=== PATIENT | male | born 1980 | race Caucasian/White ===

== ENCOUNTER 2016-09-05 07:51 | Inpatient (IN) | payer BC ==
--- NOTE | ~2016-09-05 | PN ---
Unit #: [id number] #: [id number] Patient: ALBA CUNNINGHAM [id number] [facility] [address] [place] [address] [id number] I MR#: [id number] NAME: ALBA CUNNINGHAM. ROOM: P183 Age: 36 Sex: M Admission Date: 09/05/2016 : 1980 Attending Physician: Chicho Brink M.D. Admitting Physician: Chicho Brink M.D. Primary Care Physician: Primary Care Physician Penny KEATING NOTES DATE September 08, 2016 DISCUSSION Mr. Cunningham is a 36-year-old white male, who was seen today and chart was reviewed and the case was discussed with the staff. He has been anxious, withdrawn, but rather seclusive to himself, and has been hardly able to carry on any meaningful conversation. He has been cooperative with the treatment recommendations and he has been taking the medications and tolerating them fairly well with no reported side effects. MENTAL STATUS EXAMINATION Young white male, who was casually dressed with fair personal hygiene and appears to be in no acute distress or discomfort. He was awake and alert on interaction with intact orientation. His mood is anxious with a congruent affect. His speech is slow and goal-directed. He denies any suicidal or homicidal ideations, and also denies any auditory or visual hallucinations. His insight and judgment remain slightly impaired. TREATMENT PLAN 1. We will continue him on his current medications and treatment protocol, and will monitor his response to the medications, and make further adjustments as needed. 2. We will continue to followup. Dictated by... Ori Devi/alethea TD: 09/09/2016 06:54 JOB #: [id number] Unit #: [id number] #: [id number] Patient: ALBA CUNNINGHAM YESSY PROGRESS NOTES Page 1 of 1 X Chicho Brink MD PROGRESS NOTE
--- NOTE | ~2016-09-05 | PN ---
Unit #: [id number] #: [id number] Patient: ALBA CUNNINGHAM [id number] [facility] [address] [place] [address] [id number] I MR#: [id number] NAME: ALBA CUNNINGHAM. ROOM: P183 Age: 36 Sex: M Admission Date: 09/05/2016 : 1980 Attending Physician: Chicho Brink M.D. Admitting Physician: Chicho Brink M.D. Primary Care Physician: Primary Care Physician Penny KEATING NOTES DATE OF SERVICE 09/09/2016 DISCUSSION Mr. Cunningham is a 36-year-old white male who was seen today. Chart was reviewed and case was discussed with staff. He was seen to be anxious, withdrawn and seclusive to himself, lying in his bed, and was rather describing himself to be in distress or discomfort. Meanwhile, he has been taking the medications and tolerating them fairly well with no reported side effects. MENTAL STATUS EXAMINATION Young white male who is casually dressed with fair personal hygiene, appears to be in no acute distress or discomfort. The patient was awake and alert with intact orientation. His mood is anxious with congruent affect. Speech is slow and goal-directed. He denies any suicidal or homicidal ideations and also denies any auditory or visual hallucinations. His insight and judgment remain slightly impaired. TREATMENT PLAN 1. We will continue him on his current medications and treatment protocol. We will monitor his response to the medications and make further adjustments as needed. 2. We will continue to follow up. Dictated by... Ori Devi/emilie TD: 09/09/2016 14:08 JOB #: [id number] Unit #: [id number] #: [id number] Patient: ALBA CUNNINGHAM YESSY PROGRESS NOTES Page 1 of 1 X Chicho Brink MD PROGRESS NOTE
--- NOTE | ~2016-09-05 | PN ---
Unit #: [id number] #: [id number] Patient: ALBA CUNNINGHAM [id number] [facility] [address] [place] [address] [id number] I MR#: [id number] NAME: ALBA CUNNINGHAM ROOM: P183 Age: 36 Sex: M Admission Date: 09/05/2016 : 1980 Attending Physician: Chicho Brink M.D. Admitting Physician: Ori Devi PROGRESS NOTES DATE OF SERVICE: 09/10/2016 SUBJECTIVE Mr. Benedict is a 36-year-old white male, who was seen today and chart was reviewed and the case was discussed with the staff. He has been anxious and withdrawn, though has not shown any agitation or irritability and has been cooperative with the treatment recommendations as he has been taking the medications and tolerating them fairly well with no reported side effects. MENTAL STATUS EXAMINATION Young white male, who was casually dressed with fair personal hygiene, appears to be in no acute distress or discomfort. He was awake and alert on interaction with intact orientation. His mood was anxious with a congruent affect. He denies any suicidal or homicidal ideations. His insight and judgment remain slightly impaired. TREATMENT PLAN 1. We will continue him on his current treatment protocol. We will monitor his response and make further adjustments as needed. 2. We will continue to follow up. Dictated by... Ori Devi/mele TD: 09/10/2016 19:03 JOB #: [id number] [facility] PROGRESS NOTES Page 1 of 1 X Chicho Brink MD PROGRESS NOTE
--- NOTE | ~2016-09-05 | PA ---
Unit #: [id number] #: [id number] Patient: ALBA CUNNINGHAM [id number] [facility] [address] [place] [address] [id number] I MR#: [id number] NAME: ALBA CUNNINGHAM. ROOM: P183 Age: 36 Sex: M Admission Date: 09/05/2016 : 1980 Date of Assessment: 09/06/2016 Attending Physician: Chicho Brink M.D. Admitting Physician: Chicho Brink M.D. Primary Care Physician: Primary Care Physician No PSYCHIATRIC ASSESSMENT DATE OF SERVICE 09/05/2016. IDENTIFYING DATA Mr. Cunningham is a 36-year-old single white male, who is a resident of [place], [place], and was brought to us accompanied by his sister Meeta Waters on a voluntary basis. CHIEF COMPLAINT "I want to get off drugs." HISTORY OF PRESENT ILLNESS Mr. Cunningham is a 36-year-old white male, who was brought to the hospital. Upon presentation, he stated that he wanted to get off drugs and he snorts and smokes a gram of methamphetamine daily and last use was day before yesterday. Reports he smokes quarter ounce of cannabis on weekly basis and his last use was last night. Reports he drinks 12 to 15 beers on daily basis and reports his last use was 1 beer last night and denies any other substance abuse. He reports that he has been having increasing depression, anxiety, irritability, psychomotor agitation, feelings of hopelessness and helplessness, anhedonia, inability to perform activities of daily living, and reports suicidal ideation or plan to hang himself or shoot himself, or take pills though he denied any homicidal ideation. However, he was seen to be danger to self and as such, recommendation for inpatient level of care was made. SUBSTANCE ABUSE HISTORY The patient reports history of alcohol, cannabis, and amphetamine abuse, and has been using three of them on a regular basis. PAST PSYCHIATRIC HISTORY The patient has not had any prior inpatient or outpatient psychiatric treatment. Review of the medical records indicate that currently he is not active in any treatment program, though his primary care physician has him on Lexapro 10 mg a day. PAST MEDICAL HISTORY The patient's medical history is significant for hypertension. ALLERGIES No known medication allergies. Unit #: [id number] #: [id number] Patient: ALBA CUNNINGHAM CURRENT MEDICATIONS Lisinopril, metoprolol, Lexapro. PERSONAL AND SOCIAL HISTORY A 36-year-old white male, who reports that he is single, unemployed, and lives at home with his family and has fairly decent social support system. MENTAL STATUS EXAMINATION Young white male, who was casually dressed with fair personal hygiene, appears to be in no acute distress or discomfort. He was awake, alert on interaction with intact orientation to time, place, and person. His mood was anxious and depressed with a congruent affect. Speech was slow and goal directed. His thought processes were disorganized with some looseness of associations and flight of ideas and suicidal ideations with intent and plan. His insight and judgment remain significantly impaired. DIAGNOSTIC IMPRESSION Psychiatric: Major depressive disorder, recurrent, moderate, without psychotic features; impulse control disorder; alcohol dependence, moderate and acute withdrawals; methamphetamine dependence, moderate; cannabis abuse, moderate. Medical: Hypertension. Stressors: Moderate psychosocial stressors. TREATMENT PLAN 1. The patient has presented with history of substance abuse and mood disorder, and has been decompensating and will need inpatient hospitalization for safety and stabilization. We will start him back on his home medications. We will adjust the medications and monitor response. 2. Supportive therapy was provided to the patient. 3. Safe, structured, and nourishing environment will be provided. ESTIMATED LENGTH OF STAY 5 to 7 days. ABILITY TO HELP SELF Limited. WILLINGNESS TO HELP SELF The patient appears to be willing to help self. STRENGTHS 1. Communicative. 2. Cooperative. PROBLEMS 1. Chronic dysphoric symptoms. 2. Chronic chemical dependency. 3. Poor social support system. DISCHARGE CRITERIA This will be contingent upon the patient's ability to go through detox without having any significant withdrawal symptoms as well as his ability to stay safe to himself and others, particularly after discharge from the hospital. Dictated by... Unit #: [id number] #: [id number] Patient: JORGE CUNNINGHAMIAN Alessandro Ori Devi/mele TD: 09/06/2016 08:08 JOB #: [id number] PSYCHIATRIC ASSESSMENT Page 1 of 1 X Chicho Brink MD PSYCHIATRIC ASSESSMENT
--- NOTE | ~2016-09-05 | PN ---
Unit #: [id number] #: [id number] Patient: ALBA CUNNINGHAM [id number] [facility] [address] [place] [address] [id number] I MR#: [id number] NAME: ALBA CUNNINGHAM. ROOM: P183 Age: 36 Sex: M Admission Date: 09/05/2016 : 1980 Attending Physician: Chicho Brink M.D. Admitting Physician: Chicho Brink M.D. Primary Care Physician: Primary Care Physician Penny KEATING NOTES DATE OF SERVICE 09/06/2016 DISCUSSION Mr. Cunningham is a 36-year-old white male who was seen today. Chart was reviewed and case was discussed with the staff. He has been anxious, withdrawn, and rather seclusive to himself and has not been functioning very well and appears to be not showing much improvement in his mood and his overall functioning. Meanwhile, he has been taking the medications and tolerating them fairly well. MENTAL STATUS EXAMINATION Young white male who is casually dressed with fair personal hygiene and appears to be in no acute distress or discomfort. She was awake and alert on interaction with intact orientation. Her mood is anxious with congruent affect. She denies any suicidal or homicidal ideations. Her insight and judgment remain slightly impaired. TREATMENT PLAN 1. We will continue her on her current medications and treatment protocol. We will monitor her response to the medications and make further adjustments as needed. 2. We will continue to follow up. Dictated by... Ori Devi/sarahg TD: 09/07/2016 12:47 JOB #: [id number] Unit #: [id number] #: [id number] Patient: ALBA CUNNINGHAM YESSY PROGRESS NOTES Page 1 of 1 X Chicho Brink MD PROGRESS NOTE
--- NOTE | ~2016-09-05 | PN ---
Unit #: [id number] #: [id number] Patient: ALBA CUNNINGHAM [id number] [facility] [address] [place] [address] [id number] MR#: [id number] NAME: ALBA CUNNINGHAM. ROOM: P183 Age: 36 Sex: M Admission Date: 09/05/2016 : 1980 Attending Physician: Chicho Brink M.D. Admitting Physician: Chicho Brink M.D. Primary Care Physician: Primary Care Physician Penny KRISHNAMURTHY PROGRESS NOTES DATE September 06, 2016 DISCUSSION Mr. Cunningham is a 36-year-old white male, with substance abuse and mood disorder, who was seen today and chart was reviewed and the case was discussed with the staff. He has been anxious, withdrawn, depressed, and rather seclusive to himself. Meanwhile, he has been cooperative with the treatment recommendations and he has been taking the medications and tolerating them fairly well with no reported side effects. MENTAL STATUS EXAMINATION Young white male, who was casually dressed with fair personal hygiene and appears to be in slight distress and discomfort. He was awake and alert with impaired attention and concentration. His mood is anxious and depressed with a congruent affect. His speech is slow and goal-directed. He reports having suicidal ideations but denies any homicidal ideations. His insight and judgment remain slightly impaired. TREATMENT PLAN 1. We will continue him on his current medications and treatment protocol, and will monitor his response to the medications, and make further adjustments as needed. 2. We will continue to followup. Dictated by... Ori Devi/alethea TD: 09/07/2016 06:38 JOB #: [id number] Unit #: [id number] #: [id number] Patient: ALBA CUNNINGHAM YESSY PROGRESS NOTES Page 1 of 1 X Chicho Brink MD PROGRESS NOTE
--- NOTE | ~2016-09-05 | DS ---
Unit #: [id number] #: [id number] Patient: ALBA HAMLIN [id number] [facility] [address] [place] [address] [id number] MR#: [id number] NAME: ALBA HAMLIN. ROOM: 83 Age: 36 Sex: M Admission Date: 09/05/2016 : 1980 Discharge Date: 09/11/2016 Attending Physician: Chicho Brink M.D. Primary Care Physician: Primary Care Physician No DISCHARGE SUMMARY IDENTIFYING DATA Mr. Hamlin is a 36-year-old white male with history of substance abuse and mood disorder, who was self-referred to the hospital. DISCHARGE DIAGNOSES Psychiatric: Alcohol dependence, moderate and acute withdrawals; alcohol-induced mood disorder. Medical: Hypertension. Stressors: Moderate psychosocial stressors. HISTORY OF PRESENT ILLNESS Please see initial psychiatric evaluation for details. PAST PSYCHIATRIC HISTORY Please see initial psychiatric evaluation for details. PAST MEDICAL HISTORY Please see initial psychiatric evaluation for details. HOSPITAL COURSE The patient was admitted to the [facility] and was oriented to the hospital environment. Routine p.r.n. medications were initiated and he was started back on his home medications and medications were adjusted and detox medication was initiated; however, he was seen to be showing poor insight into his situation and decided he wanted to leave against medical advice, though was encouraged to stay in the treatment and was not to accept the treatment recommendation and was denying any suicidal or homicidal ideations, and as such, was not meeting criteria for involuntary psychiatric hospitalizations and therefore, it was decided that he will be discharged home and will continue treatment on an outpatient basis. DISCHARGE MEDICATIONS None. DISCHARGE CONDITION Stable. PROGNOSIS Guarded. Dictated by... Chicho Brink M.D. Unit #: [id number] #: [id number] Patient: ALBA HAMLIN IAA/modl TD: 10/05/2016 23:09 JOB #: [id number] DISCHARGE SUMMARY Page 1 of 1 X Chicho Brink MD X DISCHARGE SUMMARY
--- NOTE | ~2016-09-05 | PN ---
Unit #: [id number] #: [id number] Patient: LABA CUNNINGHAM [id number] [facility] [address] [place] [address] [id number] MR#: [id number] NAME: ALBA CUNNINGHAM. ROOM: P183 Age: 36 Sex: M Admission Date: 09/05/2016 : 1980 Attending Physician: Chicho Brink M.D. Admitting Physician: Chicho Brink M.D. Primary Care Physician: Primary Care Physician Penny KEATING NOTES DATE OF SERVICE: 09/11/2016 SUBJECTIVE Mr. Benedict is a 36-year-old white male, who has been active under my care and staff reports that he has been getting agitated and irritable, stating that he wants to sign out today and come over and take him home against medical advice and appears poorly motivated towards treatment and was denying any suicidal ideations, intent, or plan and he was not willing to accept any treatment recommendations meanwhile recommended that he should leave after refusing to take the home care recommendations and is not a danger to self or anyone else, but has been discharged against medical advice. Dictated by... Ori Devi/mele TD: 09/13/2016 06:08 JOB #: [id number] YESSY KEATING NOTES Page 1 of 1 X Chicho Brink MD X PROGRESS NOTE
--- NOTE | ~2016-09-05 | HP ---
Unit #: [id number] #: [id number] Patient: ALBA CUNNINGHAM [id number] [place] [address] [id number] MR#: [id number] NAME: ALBA CUNNINGHAM. ROOM: P183 Age: 36 Sex: M Admission Date: 09/05/2016 : 1980 Attending Physician: Chicho Brink M.D. Admitting Physician: Chicho Brink M.D. Primary Care Physician: Primary Care Physician No HISTORY AND PHYSICAL HISTORY OF PRESENT ILLNESS Alba is a 36 year old admitted to [facility] because of his polysubstance abuse which includes methamphetamine and alcohol. PAST MEDICAL HISTORY 1. Long history of illicit substance abuse. 2. High blood pressure. PAST SURGICAL HISTORY Nothing reported. ALLERGIES No known drug allergies. SOCIAL HISTORY He does not smoke, drinks at least eight beers on a daily basis and admits to regular use of methamphetamine. FAMILY HISTORY Medically noncontributory. REVIEW OF SYSTEMS CONSTITUTIONAL: No fever or chills. HEENT: Denies any sore throat, ear pain or runny nose. CARDIOVASCULAR: Denies chest pain, irregular heart rhythm or palpitations. CHEST: Denies shortness of breath or cough. No hemoptysis. GASTROINTESTINAL: Denies nausea, vomiting, diarrhea or chronic constipation. ENDOCRINE: Denies history of increased thirst or urination. No recent significant weight loss or gain. GENITOURINARY: Denies dysuria, frequency, or hematuria. SKIN: Denies any rashes. HEMATOLOGIC: Denies history of increased bleeding or bruising. MUSCULOSKELETAL: Denies any hot, swollen joints. No generalized muscle pain. NEUROLOGIC: Denies problems with vision or speech. No frequent, severe headaches. No numbness, tingling or weakness in any extremities. Denies loss of bladder or bowel control. CURRENT MEDICATIONS 1. Detox protocol Unit #: [id number] #: [id number] Patient: ALBA CUNNINGHAM 2. Zestril 10 mg daily 3. Lexapro 10 mg q.h.s. 4. Lopressor 25 mg b.i.d. 5. Catapres 0.1 mg q.6 h. p.r.n. PHYSICAL EXAMINATION GENERAL: Alert, well-nourished, in no apparent distress. VITAL SIGNS: Blood pressure 140/86, heart rate 88, respirations 16, temperature 98.6. WEIGHT: 240 pounds. HEIGHT: 6'3". SKIN: Warm and dry without rash or lesion. HEENT: Normocephalic. TMs not viewed. Oral and nasal passages clear. Conjunctivae clear. Pupils equal, round and reactive to light and accommodation. Extraocular movements intact. NECK: Supple without lymphadenopathy or thyromegaly. HEART: Regular rate and rhythm without murmur. LUNGS: Clear. ABDOMEN: Soft, nontender. : Not done. EXTREMITIES: No evidence of cyanosis, clubbing or edema. Moves all extremities without focal deficit. NEUROLOGICAL: Grossly within normal limits. Cranial Nerves: II: Visual ahmadi are intact. III, IV AND : Extraocular movements are intact. Pupils are equal, round and reactive to light. V: Facial sensation is grossly normal. VII: Facial movements and expression are normal. VIII: Auditory acuity grossly intact. IX, X: Uvula is midline. Phonation is normal. XI: Patient shrugs shoulders and turns head normally. XII: Tongue protrudes in the midline. Sensory and Motor Function: Sensory and motor sensation is grossly normal. Motor: moves all extremities well. Coordination: Gait is normal. Deep Tendon Reflexes: Intact. IMPRESSION Psychiatric admission. RECOMMENDATIONS PSYCHIATRIC: Per psychiatrist. MEDICAL: I see no contraindications to participating in facility's activities. MEDICAL PROGNOSIS Good. MEDICAL CONDITION Stable. Dictated by... Renetta Tate P.A.-C. for Ori Rothman Unit #: [id number] #: [id number] Patient: ALBA CUNNINGHAM TD: 09/05/2016 20:27 JOB #: [id number] HISTORY AND PHYSICAL X Renetta Tate PA X HISTORY AND PHYSICAL
[2016-09-06 09:42] LABS: URINE APPEARANCE CLEAR; URINE BILIRUBIN NEG (NEG); URINE BLOOD NEG (NEG); URINE COLOR YELLOW; URINE GLUCOSE NEG (NEG); URINE KETONE NEG (NEG); URINE LEUKOCYTE ESTERASE NEG (NEG); URINE NITRATE NEG (NEG); URINE PROTEIN NEG (NEG); URINE SPECIFIC GRAVITY 1.011 (1.003-1.035)
[2016-09-06 09:46] LABS: BASOPHIL% 0.5 % (0-2.5); EOSINOPHIL# 0.3 X10e3 (0-0.7); EOSINOPHIL% 3.4 % (0.0-7.0); HEMATOCRIT 43.5 % (38.0-50.0); LYMPHOCYTE# 2.5 X10e3 (1.0-3.5); LYMPHOCYTE% 28.4 % (17.0-45.0); MEAN CELL VOLUME 90.2 FL (83-96); MEAN CORPUSCULAR HEMOGLOBIN 31.1 PG (28-34); MEAN CORPUSCULAR HGB CONC 34.5 g/dL (30-36); MEAN PLATELET VOLUME 8.2 FL (6.5-11.5); MONOCYTE# 0.8 X10e3 (0-1.0); MONOCYTE% 8.7 % (3.0-12.0); NEUTROPHIL# 5.2 X10e3 (1.5-7.1); PLATELET COUNT 219 X10e3 (140-420); RED BLOOD COUNT 4.83 X10e (3.90-5.60); RED CELL DISTRIBUTION WIDTH 13.1 % (11.0-15.5); WHITE BLOOD COUNT 8.7 X10e3 (4.0-10.5)
[2016-09-06 09:48] LABS: DIFF IND NO
[2016-09-06 09:54] LABS: AMPHETAMINE POS (NEG); BARBITURATES NEG (NEG); BENZODIAZEPINES NEG (NEG); COCAINE NEG (NEG); MARIJUANA NEG (NEG); OPIATES NEG (NEG); TRICYCLIC ANTIDEPRESSANTS NEG (NEG); U METHADONE NEG (NEG)
[2016-09-06 10:08] LABS: THYROID STIMULATING HORMONE 0.85 uIU/ml (0.34-5.60)
[2016-09-06 10:18] LABS: FREE THYROXIN (T4) 0.71 ng/dL (0.58-1.64)
[2016-09-06 10:19] LABS: ALBUMIN SERUM 3.7 g/dL (3.5-5.0); ALKALINE PHOSPHATASE 54 U/L (32-92); ALT (SGPT) 23 U/L (10-40); AST (SGOT) 20 U/L (10-42); BILIRUBIN,TOTAL 0.6 mg/dL (0.2-2.0); BLOOD UREA NITROGEN 15 mg/dL (9-23); BUN/CREATININE RATIO 13.63; CALCIUM SERUM 9.2 mg/dL (8.4-10.2); CARBON DIOXIDE 33 mmol/L (22-31); CHLORIDE 101 mmol/L (100-111); CREATININE SERUM 1.1 mg/dL (0.6-1.4); GLOM FILT RATE Estimated ABOVE60 mL/min (>60); GLUCOSE FASTING 82 mg/dL (70-110); POTASSIUM 4.5 mmol/L (3.5-5.1); PROTEIN TOTAL SERUM 6.3 g/dL (6.0-8.3); SODIUM 139 mmol/L (135-145)
== END 2016-09-11 10:43 | disposition home or self-care (01) | DRG 885 ==
LOC: POF 07:51 → P1E 13:30
PROVIDERS: Psychiatry & Neurology Psychiatry
PROC: HZ2ZZZZ Detoxification Services for Substance Abuse Treatment (ICD-10-PCS; principal; 2016-09-06)
DX: F33.1 Major depressive disorder, recurrent, moderate (principal); F15.20 Other stimulant dependence, uncomplicated; I10 Essential (primary) hypertension; F10.239 Alcohol dependence with withdrawal, unspecified; F63.9 Impulse disorder, unspecified; F12.10 Cannabis abuse, uncomplicated
CPT/HCPCS: 80053; 80307; 81003; 84439; 84443; 85025; 86592